=== PATIENT | male | born 1990 | race Caucasian/White ===

== ENCOUNTER 2016-12-06 12:12 | Emergency (ER) | payer MEDICAID, OTHER ==
[2016-12-06] MEDS ORDERED: DIPHENHYDRAMINE HCL 50 MG/ML VIAL IM ONE (13:31)
[2016-12-06] MEDS ORDERED: HALOPERIDOL LACTATE INJ 5 MG/1 ML VIAL IM ONE (13:31)
[2016-12-06] MEDS ORDERED: LORAZEPAM INJ 2 MG/1 ML VIAL IM ONE (13:31)
[2016-12-06] MEDS ORDERED: LORAZEPAM INJ 2 MG/1 ML VIAL ONE (13:32)
[2016-12-06] MEDS ORDERED: HALOPERIDOL LACTATE INJ 5 MG/1 ML VIAL ONE (13:32)
[2016-12-06] MEDS ORDERED: DIPHENHYDRAMINE HCL 50 MG/ML VIAL ONE (13:32)
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
[2016-12-06 15:23] LABS: ABSOLUTE EOSINOPHILS # (AUTO) 0.1 10^3/uL (0.0-0.6); ABSOLUTE LYMPHOCYTES (AUTO) 1.1 10^3/uL (0.5-4.7); ABSOLUTE MONOCYTES (AUTO) 0.5 10^3/uL (0.1-1.4); ABSOLUTE NEUT (AUTO) 7.6 10^3/uL (1.7-8.2); BASOPHILS % (AUTO) 0.2 % (0-2); EOSINOPHILS % (AUTO) 1.5 % (0-6); HEMATOCRIT 40.4 % (37.9-51.0); HEMOGLOBIN 13.7 g/dL (13.5-17.0); HGB HCT DIFFERENCE 0.7; LYMPHOCYTES % (AUTO) 11.7 % (13-45); MEAN CORPUSCULAR HEMOGLOBIN 29.9 pg (27.0-33.4); MEAN CORPUSCULAR HGB CONC 33.9 g/dL (32.0-36.0); MEAN CORPUSCULAR VOLUME 88 fl (80-97); MONOCYTES % (AUTO) 5.7 % (3-13); RED BLOOD COUNT 4.59 10^6/uL (4.35-5.55); RED CELL DISTRIBUTION WIDTH 12.5 % (11.5-14.0); SEGMENTED NEUTROPHILS % (AUTO) 80.9 % (42-78); WHITE BLOOD COUNT 9.4 10^3/uL (4.0-10.5)
[2016-12-06 15:40] LABS: ALANINE AMINOTRANSFERASE 29 U/L (21-72); ALBUMIN 4.4 g/dL (3.5-5.0); ALKALINE PHOSPHATASE 72 U/L (38-126); ANION GAP 13 (5-19); ASPARTATE AMINO TRANSFERASE 34 U/L (17-59); BILIRUBIN,TOTAL 0.5 mg/dL (0.2-1.3); BLOOD UREA NITROGEN 16 mg/dL (7-20); CALCIUM 9.7 mg/dL (8.4-10.2); CARBON DIOXIDE 26 mmol/L (22-30); CHLORIDE 106 mmol/L (98-107); CREATININE RESULT 0.86 mg/dL (0.52-1.25); GLUCOSE 79 mg/dL (75-110); POTASSIUM 4.1 mmol/L (3.6-5.0); SODIUM 145.1 mmol/L (137-145); TOTAL PROTEIN 7.1 g/dL (6.3-8.2)
[2016-12-06 15:42] LABS: ALCOHOL < 10 mg/dL (NONE DETECTED)
[2016-12-06 16:00] LABS: ADD ON TESTING BLD IN LAB ACKNOWLEDGE
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
[2016-12-06 16:17] LABS: VALPROIC ACID 40.5 ug/mL (50.0-120.0)
[2016-12-06] MEDS ORDERED: OLANZAPINE 5 MG TABLET PO SCH (18:30)
[2016-12-06] MEDS ORDERED: BENZTROPINE MESYLATE 1 MG TABLET PO SCH (18:30)
[2016-12-06] MEDS ORDERED: DIVALPROEX SODIUM 500 MG TAB.SR.24H PO SCH (19:00)
--- NOTE | 2016-12-06 19:26 | EKG REPORT ---
SEVERITY:- ABNORMAL ECG - SINUS RHYTHM ST ELEVATION SUGGESTS PERICARDITIS : Confirmed by: Charles Hernadez 06-Dec-2016 19:26:10
--- NOTE | 2016-12-07 09:12 | ER Document Report ---
Doctor's Note Notes: 12/07/16 09:11 26-year-old male with past medical history of PTSD, Bipolar Disorder, ADHD, and Anxiety who presents after a suicide attempt 4 days ago and aggressive and violent behavior at home. We have restarted the patient's psychiatric medications. Patient has no complaints or problems this morning. Patient will be pending IVC placement.
[2016-12-07 10:01] LABS: APPEARANCE,URINE SLIGHTLY-CLOUDY; BILIRUBIN,URINE NEGATIVE (NEGATIVE); GLUCOSE, URINE NEGATIVE (NEGATIVE); KETONES,URINE TRACE mg/dL (NEGATIVE); LEUKOCYTE ESTERASE,URINE NEGATIVE (NEGATIVE); NITRITE,URINE NEGATIVE (NEGATIVE); PROTEIN,URINE 100 mg/dL (NEGATIVE); URINE SPECIFIC GRAVITY 1.028; UROBILINOGEN,URINE NEGATIVE mg/dL (<2.0)
[2016-12-07 10:16] LABS: URINE BARBITURATES SCREEN NEGATIVE; URINE METHADONE SCREEN NEGATIVE; URINE OPIATES LOW NEGATIVE; URINE PHENCYCLIDINE SCREEN NEGATIVE
[2016-12-07 16:01] VITALS: BP 117/98
--- NOTE | 2016-12-07 16:18 | PSYCHOLOGICAL NOTE ---
Psych Note - Psych Note Psych Note: Patient is a 26 year old male who is under IVC for SI with aggressive outbursts at home towards property, spouse, and self. Per the IVC process, patient was referred for psychiatric treatment and accepted to [facility]. Patient advised of this and accepted the information without incident. Discussed with patient's the process, to include the [facility] transporting there and back if needed. Answered all questions to the best of my ability. Patient is recommended to continue under IVC and follow through with 24 hour inpatient psychiatric care. 296.80 (F31.9) Unspecified Bipolar and Related Disorder R/O Amphetamine Use Disorder
== END 2016-12-07 16:15 ==
LOC: ER 12:12
DX: R45.851 Suicidal ideations (principal); F41.9 Anxiety disorder, unspecified; F31.9 Bipolar disorder, unspecified; Z78.1 Physical restraint status
CPT/HCPCS: 93005; 99285; 96372; 36415; 80307 ×4; 85025; 80053; 81001; 80164; 93010; J1200; J1630; J3490 ×2; J2060

== ENCOUNTER 2017-05-17 19:51 | Emergency (ER) | payer MEDICAID ==
[2017-05-17 20:04] VITALS: BP 112/83
== END 2017-05-17 21:37 | disposition left against medical advice (07) ==
LOC: ER 19:51
DX: Z53.21 Procedure and treatment not carried out due to patient leaving prior to being seen by health care provider (principal)